=== PATIENT | female | born 1965 | race Caucasian/White ===

== ENCOUNTER 2017-04-10 09:22 | Day surgery (SDC) | payer BC ==
[2017-04-06 16:14] VITALS: BMI 19.1
[2017-04-10] MEDS ORDERED: BUPIVACAINE HCL/EPINEPHRINE/PF 30 ML VIAL IJ ONE (10:56)
[2017-04-10] MEDS ORDERED: MIDAZOLAM HCL 2 MG/2 ML SINGLE DOSE VIAL ONE (11:31)
--- NOTE | 2017-04-10 11:42 | HP ---
Admitting History and Physical - Admission History of Present Illness: The patient is a 51 yo female who presents today for cubital tunnel release. She has had right forearm pain/burning sensation associated with tingling of her 4/5th digit. Her symptoms originally started several months ago but have increased in intensity. She denies any SOB, CP fevers or cough. History Source: Patient Limitations to Obtaining History: No Limitations - Past Medical History Cardiovascular: No: Deep Vein Thrombosis, HTN Pulmonary: No: Asthma Gastrointestinal: No: Gastritis Renal/: No: Renal Calculi, UTI ...LMP: 03/06/17 ...: No - Smoking History Smoking history: Never smoked Have you smoked in the past 12 months: No - Alcohol/Substance Use Hx Alcohol Use: No Home Medications - Allergies Allergies/Adverse Reactions: Allergies Allergy/AdvReac Type Severity Reaction Status Date / Time No Known Allergies Allergy Verified 04/10/17 09:56 - Home Medications Home Medications: Ambulatory Orders NK [No Known Home Medication] 04/06/17 Review of Systems - Review of Systems Constitutional: denies: Chills, Fever Neck: denies: Decreased ROM, Pain on Movement Cardiovascular: denies: Chest Pain, Palpitations Respiratory: denies: Cough, SOB Gastrointestinal: denies: Abdominal Pain, Rectal Bleeding Genitourinary: denies: Burning, Dysuria Musculoskeletal: denies: Joint Pain, Joint Swelling Neurological: reports: Other (tingling in b/l feet sciatic s/p epidural injection this week). denies: Headache, Seizure Hematology/Lymphatic: reports: Easily Bruised. denies: Excessive Bleeding Physical Examination Vital Signs: Vital Signs Temperature 98.2 F 04/10/17 09:56 Pulse Rate 68 04/10/17 09:56 Respiratory Rate 16 04/10/17 09:56 Blood Pressure 111/56 04/10/17 09:56 O2 Sat by Pulse Oximetry (%) 98 04/10/17 09:56 Constitutional: Yes: Well Nourished, Calm HENT: Yes: WNL, Atraumatic, Normocephalic Neck: Yes: WNL, Supple, Trachea Midline Cardiovascular: Yes: WNL, Regular Rate and Rhythm Respiratory: Yes: WNL, Regular, CTA Bilaterally Gastrointestinal: Yes: WNL, Normal Bowel Sounds, Soft Extremities: No: Calf Tenderness, Deformity Edema: No Peripheral Pulses WNL: Yes Peripheral Pulses: Left Doralis Pedis: 2+, Right Dorsalis Pedis: 2+ Neurological: Yes: WNL, Alert, Oriented ...Motor Strength: WNL, LUE, LLE, RUE, RLE Psychiatric: Yes: WNL, Alert, Oriented Labs: Laboratory Tests 04/10/17 09:52 Urine HCG, Qual Negative Assessment/Plan 51 yo female with right elbow cubital tunnel syndrome Plan for release today She remains npo IV abx at time of surgery DVT ppx with SCDs/ambulation
[2017-04-10] MEDS ORDERED: PROPOFOL 20 ML ONE ×2 (11:46)
[2017-04-10] MEDS ORDERED: SUCCINYLCHOLINE CHLORIDE 200 MG/10 ML VIAL ONE (11:46)
[2017-04-10] MEDS ORDERED: ceFAZolin SODIUM 1 GM VIAL ONE (11:56)
[2017-04-10] MEDS ORDERED: DEXAMETHASONE SOD PHOSPHATE 4 MG/1 ML VIAL ONE (11:58)
[2017-04-10] MEDS ORDERED: ONDANSETRON 4 MG/2 ML VIAL ONE (11:58)
[2017-04-10] MEDS ORDERED: oxyCODONE HCL 5 MG TABLET PO PRN (12:41)
[2017-04-10] MEDS ORDERED: LACTATED RINGERS SOLUTION 1,000 ML IV SCH (12:45)
--- NOTE | 2017-04-10 12:45 | DS ---
Physical Examination Vital Signs: Vital Signs Temperature 98.2 F 04/10/17 09:56 Pulse Rate 68 04/10/17 09:56 Respiratory Rate 16 04/10/17 09:56 Blood Pressure 111/56 04/10/17 09:56 O2 Sat by Pulse Oximetry (%) 98 04/10/17 09:56 Discharge Summary Reason For Visit: RIGHT CUBITAL TUNNEL SYNDROME Condition: Good - Instructions Diet, Activity, Other Instructions: Use the sling for the first 3 days most of the time. You can move the elbow to stretch it during those first 3 days After 3 days you may remove the bandage and shower. You need to put band aids over the sutures until they are removed by me. After the three day rest period you may move the arm as much as you tolerate After the three day rest period you only need the sling for comfort. Please call our office to schedule your post surgery visit. I should see you 12 -14 days after surgery for suture removal. Please do not put any ointments on the sutures or incision. Disposition: HOME - Home Medications Comprehensive Discharge Medication List: Ambulatory Orders NK [No Known Home Medication] 04/06/17
--- NOTE | 2017-04-10 12:45 | OP ---
Operative Note - Note: Operative Date: 04/10/17 Pre-Operative Diagnosis: right elbow cubital tunnel syndrome Operation: right elbow cubital tunnel release. Post-Operative Diagnosis: Same as Pre-op Surgeon: Yasir Lenoardo Anesthesia: General Operative Report Dictated: Yes
[2017-04-10] MEDS ORDERED: ONDANSETRON 4 MG/2 ML VIAL IVPUSH PRN (13:18)
[2017-04-10] MEDS ORDERED: PROMETHAZINE HCL 25 MG/1 ML VIAL ONE (13:35)
[2017-04-10 13:58] VITALS: TEMP 98
[2017-04-10 14:39] VITALS: BP 109/56; PULSE 78
[2017-04-10] MEDS ORDERED: PROMETHAZINE HCL 25 MG/1 ML VIAL IVPUSH ONE (15:00)
--- NOTE | 2017-04-10 15:41 | SURG ---
Surgery School Business [employer] Note School Business Manager: Amanda Diamond PA-C Date of Service: 04/10/17 Diagnosis: right elbow cubital tunnel syndrome Procedure: right elbow cubital tunnel release. I was present for the entirety of the operative procedure. For further detail, please refer to operative report. Visit type - Case Type Case Type: Scheduled Admission - Emergency Emergency Visit: No - New patient This patient is new to me today: Yes Date on this admission: 04/10/17 - Critical Care Critical Care patient: No
== END 2017-04-10 14:40 | disposition home or self-care (01) ==
LOC: FASU 09:22
PROVIDERS: ATTEND Orthopaedic Surgery
PROC: 01N40ZZ Release Ulnar Nerve, Open Approach (ICD-10-PCS; principal; 2017-04-10 12:10)
DX: G56.21 Lesion of ulnar nerve, right upper limb (principal)
CPT/HCPCS: 84703; 94760